=== PATIENT | female | born 1985 | race Caucasian/White ===

== ENCOUNTER → 2017-04-15 16:14 | Outpatient (CLI) | payer BC, SELFPAY ==
[2017-04-22 12:43] LABS: HPV Reflexed? NOT INDICATED
== END ==
PROVIDERS: Visit Provider Obstetrics & Gynecology
DX: Z12.4 Encounter for screening for malignant neoplasm of cervix (principal)
CPT/HCPCS: 88175; G0145

== ENCOUNTER 2017-10-13 08:28 | Emergency (ER) | payer BC, SELFPAY ==
[2017-10-13 08:29] VITALS: BP 128/96; PULSE 100; RESP 16; TEMP 36.4; O2SAT 100; BMI 18.5
--- NOTE | 2017-10-13 08:38 | ED.VISSUMM ---
- ER Visit Summary Date of Service: 10/13/17 Chief Complaint: Dizziness History of Present Illness: The patient is a 32 F who presents with dizziness. She states is been intermittent for the past couple of months. She has no symptoms currently. She describes it as room spinning when it happens. She states she has overall diffuse weakness as well when this happens. No recent illnesses. No history of vertigo. She has no health problems and takes no medications on a daily basis. Physical Examination: Vital signs reviewed. HEENT exam unremarkable. Heart is regular rate and rhythm without murmurs. Lungs are clear to auscultation. Abdomen is soft and nontender. Extremities reveal no edema. Skin exam normal. Neurologic exam normal. Test Results: Lab studies are normal Emergency Department Course and Treatment: Patient has no symptoms at this time. Her symptoms sound like vertigo with the intermittent nature in the room spinning. Her neurologic exam is normal. I will give her Antivert that she can take at home when symptoms return. I will give her a PCP to follow-up with Treatment Plan: [] Disposition: Discharge Impression: Vertigo This note was generated with [employer] dictation software. It may contain incorrect words, spelling, and punctuation that were not noted in review of the chart prior to signing ED Disposition - Plan for ED Patient: Chief Complaint: Dizziness Referrals: NOT,DEFINED [NON-STAFF] -
[2017-10-13 08:40] VITALS: BP 110/79; PULSE 72; RESP 16; TEMP 36.8; O2SAT 100
[2017-10-13 09:17] LABS: Absolute Lymphocyte Count 2.28 X10^3/ul (0.83-4.51); Absolute Neutrophil Count 3.5 X10^3/uL (2.0-7.7); Basophil# 0.04 X10^3/uL; Basophil% 0.6 % (0-1); Eosinophil# 0.17 X10^3/uL; Eosinophils% 2.6 % (0-5); Hematocrit 42.8 % (37-47); Hemoglobin 14.5 g/dl (12.0-15.0); Lymphocyte # 2.28 X10^3/ul (4.0); Lymphocyte % 34.3 % (19-41); Mean Corp Hgb Conc 33.9 g/gl (32-36); Mean Corpuscular Hgb 29.9 pg (27.0-32.0); Mean Corpuscular Volume 88.2 fL (81-99); Mean Platelet Vol. 10.7 fl (6.2-12.0); Monocyte# 0.61 X10^3/uL; Monocyte% 9.2 % (0-10); Neutrophil # 3.54 X10^3/uL (2.7-7.7); Neutrophil % 53.1 % (47-70); POSITIVE COUNT NO; POSITIVE DIFFERENTIAL NO; POSITIVE MORPHOLOGY NO; Platelet Count 198 K/mm3 (150-450); RBC Distribution Width CV 12.8 % (11.6-14.6); Red Blood Count 4.85 M/mm3 (4.2-5.4); White Blood Count 6.7 K/mm3 (4.4-11.0)
[2017-10-13 09:27] LABS: Anion Gap 10 (5-15); BUN 14 mg/dL (7-18); BUN/Creat Ratio 20.6 RATIO (10-20); Calcium,Total 9.1 mg/dL (8.5-10.1); Chloride 103 mmol/L (98-107); Creatinine, Serum 0.68 mg/dL (0.55-1.02); EST Glomerular Filtration Rate 108 mL/min (>60); Est Glom Filt Rate - Afr Amer 131 mL/min (>60); Estimated Creatinine Clearance 93.55 ml/min; Glucose 86 mg/dL (74-106); Potassium 3.8 mmol/L (3.5-5.1); Sodium Level 142 mmol/L (136-145)
[2017-10-13 09:40] LABS: Bacteria 0 SEEN /hpf (None Seen); Mucous, Urine 0 SEEN /hpf (<or=2+); Red Blood Cells-Urine 0 SEEN /hpf (0-5); Squamous Epithelial Cells - UA 0 SEEN /hpf (5-10); White Blood Cells 0 SEEN /hpf (0-5)
[2017-10-13 09:43] LABS: Color, Urine Yellow (Yellow); Glucose, Dipstick Normal (Normal); Ketone-Dipstick Negative (Negative); Leukocyte Esterase-Dipstick Negative /ul (Negative); Nitrite-Dipstick Negative (Negative); Occult Blood-Urine Negative /ul (Negative); Protein-Dipstick Negative (Negative); Specific Gravity, Urine 1.015 (1.002-1.030); Urine Bilirubin Dipstick Negative (Negative); Urine Clarity Clear (Clear); Urine Urobilinogen Normal (Normal)
[2017-10-13 09:44] LABS: Internal QC Validated? YES +Cl - CLEAR BKGD
[2017-10-13 09:45] LABS: Pregnancy, Urine Negative Negative
--- NOTE | 2017-10-13 09:57 | ED.DEP ---
ED Disposition - Plan for ED Patient: Disposition: Home or Assisted Living Chief Complaint: Dizziness Instructions: ED BPV Vertigo Prescriptions: Meclizine HCl [Antivert] 25 mg PO 4X/DAY PRN PRN #20 tab PRN Reason: Dizziness Referrals: NOT,DEFINED [NON-STAFF] - John Olivas III, MD [STAFF PHYSICIAN] -
== END 2017-10-13 10:13 | disposition home or self-care (01) ==
PROVIDERS: Emergency Provider Emergency Medicine
DX: R42 Dizziness and giddiness (principal)
CPT/HCPCS: 80048; 81001; 81025; 85025; 99283; A4216

== ENCOUNTER → 2018-05-25 13:03 | Outpatient (CLI) | payer BC, SELFPAY ==
[2018-05-25 15:38] LABS: Chlamydia Trachomatis by PCR Negative (Negative); Neisserai gonorrhoeae by PCR Negative (Negative); Probe Check PASS; Sample Adequacy Control PASS; Specimen Processing Control PASS
[2018-05-26 14:52] LABS: HPV Reflexed? NOT INDICATED
== END ==
PROVIDERS: Visit Provider Obstetrics & Gynecology
DX: Z12.4 Encounter for screening for malignant neoplasm of cervix (principal); Z11.3 Encounter for screening for infections with a predominantly sexual mode of transmission
CPT/HCPCS: 87491; 87591; 88175; G0145

== ENCOUNTER → 2018-06-18 12:01 | Outpatient (CLI) | payer BC, SELFPAY ==
[2018-06-18 14:05] LABS: Color, Urine Yellow (Yellow); Glucose, Dipstick Normal (Normal); Ketone-Dipstick Negative (Negative); Leukocyte Esterase-Dipstick 100 /ul (Negative); Nitrite-Dipstick Negative (Negative); Occult Blood-Urine Negative /ul (Negative); Protein-Dipstick Negative (Negative); Urine Bilirubin Dipstick Negative (Negative); Urine Clarity Sl. Cloudy (Clear); Urine Urobilinogen Normal (Normal)
[2018-06-18 14:07] LABS: Absolute Lymphocyte Count 1.25 X10^3/ul (0.83-4.51); Absolute Neutrophil Count 5.7 X10^3/uL (2.0-7.7); Basophil# 0.02 X10^3/uL; Basophil% 0.3 % (0-1); Eosinophil# 0.04 X10^3/uL; Eosinophils% 0.5 % (0-5); Hematocrit 39.4 % (37-47); Hemoglobin 13.4 g/dl (12.0-15.0); Lymphocyte # 1.25 X10^3/ul (4.0); Lymphocyte % 16.8 % (19-41); Mean Corpuscular Hgb 29.9 pg (27.0-32.0); Mean Corpuscular Volume 87.9 fL (81-99); Mean Platelet Vol. 11.2 fl (6.2-12.0); Monocyte# 0.46 X10^3/uL; Monocyte% 6.2 % (0-10); Neutrophil # 5.68 X10^3/uL (2.7-7.7); Neutrophil % 76.1 % (47-70); POSITIVE COUNT NO; POSITIVE DIFFERENTIAL NO; POSITIVE MORPHOLOGY NO; Platelet Count 223 K/mm3 (150-450); RBC Distribution Width CV 12.8 % (11.6-14.6); RBC Distribution Width SD 41.2 fl (35.1-43.9); Red Blood Count 4.48 M/mm3 (4.2-5.4); White Blood Count 7.5 K/mm3 (4.4-11.0)
[2018-06-18 14:20] LABS: Thyroid Stim Hormone (TSH) 0.98 uIU/mL (0.358-3.74)
[2018-06-18 15:00] LABS: HIV - WCH Non-Reactive (Nonreactive); Rubella IgG 311.4 IU/mL
[2018-06-19 04:56] LABS: Prenatal RPR NONREACTIVE (NONREACTIVE)
[2018-06-19 11:26] LABS: HEPATITIS B SURFACE AG Negative (Negative); Hep C Antibodies <0.1 s/co ratio (0.0-0.9)
== END ==
PROVIDERS: Visit Provider Obstetrics & Gynecology
DX: Z34.81 Encounter for supervision of other normal pregnancy, first trimester (principal)
CPT/HCPCS: 36415; 81002; 84443; 85025; 86703; 86762; 86803; 87340

== ENCOUNTER 2018-08-10 04:58 | Emergency (ER) | payer BC, SELFPAY ==
[2018-08-10 05:01] VITALS: BP 134/90; PULSE 92; RESP 18; TEMP 36.3; O2SAT 100; BMI 20.1
--- NOTE | 2018-08-10 05:11 | ED.RN ---
RN CALLED FOR EKG, NO OLD EKGS IN MUSE
--- NOTE | 2018-08-10 05:13 | EKG12_ITS ---
Test Reason : CP Blood Pressure : / mmHG Vent. Rate : 106 BPM Atrial Rate : 106 BPM P-R Int : 132 ms QRS Dur : 084 ms QT Int : 348 ms P-R-T Axes : 074 077 045 degrees QTc Int : 462 ms Sinus tachycardia Nonspecific ST abnormality Abnormal ECG Confirmed by RENÉE ELY, SAGE ([id number]), medical editor BURT MACDONALD ([id number]) on 08/11/2018 8:16:45 AM Referred By: LOPEZ Confirmed By:SAGE CHINCHILLA MD
[2018-08-10 05:23] VITALS: O2SAT 100
[2018-08-10] MEDS: 0.9% Normal Saline 1,000 ML 1000 ML IV (05:23)
--- NOTE | 2018-08-10 05:33 | ED.RN ---
DR. MAE MADE AWARE BY THIS NURSE OF VISIBLE SHAKING NOTED IN PATIENT'S EXTREMITIES, OFF AND ON. THIS NURSE BELIEVES THAT COULD POSSIBLY BY ANXIETY RELATED TO HER CONDITION AND THE WELL BEING OF HER UNBORN BABY. NO NEW ORDERS BY DR. MAE AT THIS TIME.
[2018-08-10 05:41] LABS: Absolute Lymphocyte Count 2.52 X10^3/ul (0.83-4.51); Absolute Neutrophil Count 5.5 X10^3/uL (2.0-7.7); Basophil# 0.02 X10^3/uL; Basophil% 0.2 % (0-1); Eosinophil# 0.15 X10^3/uL; Eosinophils% 1.7 % (0-5); Hematocrit 35.8 % (37-47); Hemoglobin 12.3 g/dl (12.0-15.0); Lymphocyte # 2.52 X10^3/ul (4.0); Lymphocyte % 28.6 % (19-41); Mean Corp Hgb Conc 34.4 g/gl (32-36); Mean Corpuscular Hgb 29.9 pg (27.0-32.0); Mean Corpuscular Volume 86.9 fL (81-99); Mean Platelet Vol. 10.8 fl (6.2-12.0); Monocyte# 0.61 X10^3/uL; Monocyte% 6.9 % (0-10); Neutrophil # 5.47 X10^3/uL (2.7-7.7); Neutrophil % 62.1 % (47-70); Platelet Count 169 K/mm3 (150-450); RBC Distribution Width SD 41.7 fl (35.1-43.9); Red Blood Count 4.12 M/mm3 (4.2-5.4); White Blood Count 8.8 K/mm3 (4.4-11.0)
[2018-08-10 05:42] VITALS: BP 95/63; PULSE 95; RESP 17; O2SAT 100
[2018-08-10 05:46] VITALS: BP 115/77
[2018-08-10 05:51] LABS: POSITIVE COUNT NO; POSITIVE DIFFERENTIAL NO; POSITIVE MORPHOLOGY NO
[2018-08-10 05:57] LABS: D-Dimer Quantitative (DVT/PE) 0.42 FEU/ug/m (0.27-0.49)
--- NOTE | 2018-08-10 06:04 | RAD_ITS ---
STUDY: X-RAY CHEST REASON FOR EXAM: Female, 32 years old. Shortness of breath TECHNIQUE: 1 view COMPARISON: None. FINDINGS: The lungs are clear and expanded. There is no demonstrated pleural abnormality. Normal size heart. Normal mediastinum and saad. Normal visualized pulmonary arteries. Normal visualized aortic arch and descending thoracic aorta. Normal visualized thoracic spine. Normal visualized ribs, clavicles, and shoulders. There is no demonstrated abnormality of the visualized soft tissue structures of the upper abdomen. RAD/Chest 1 View (Portable) IMPRESSION: Normal x-ray examination of the chest. No acute findings in the lungs Electronically Signed: Pramod Crabtree MD at 6:54 EDT Tel , Service support ,
[2018-08-10 06:05] LABS: Anion Gap 12 (5-15); BUN 8 mg/dL (7-18); BUN/Creat Ratio 15.4 RATIO (10-20); Chloride 105 mmol/L (98-107); Creatinine, Serum 0.52 mg/dL (0.55-1.02); EST Glomerular Filtration Rate 146 mL/min (>60); Est Glom Filt Rate - Afr Amer 177 mL/min (>60); Estimated Creatinine Clearance 149.84 ml/min; Glucose 90 mg/dL (74-106); Sodium Level 140 mmol/L (136-145); Thyroid Stim Hormone (TSH) 4.34 uIU/mL (0.358-3.74)
--- NOTE | 2018-08-10 06:07 | ED.DCSUM_ITS ---
- ER Visit Summary Date of Service: 08/10/18 Chief Complaint: Palpitation History of Present Illness: The patient is a [address] Ashlie Cortez. She is a G2, P1 at 17 weeks of . She reports approximately 4 hours she began having palpitations as though her heart was beating quickly. This seems to get better and worse at times. She denies any chest pain. She does report that she is short of breath. She has no personal family history of DVT. She did return from [place] 3 days ago. She denies any ankle swelling or calf pain. Review of systems is otherwise negative. No vaginal bleeding or discharge. No fever or chills. Physical Examination: Vitals: Stable. Afebrile. General: Well-nourished and well-developed. Head: Normocephalic atraumatic. Neck: Supple, no lymphadenopathy. No JVD. Nontender. Cardiovascular: Tachycardic regular rhythm. No murmurs. Respiratory: No respiratory distress. Clear to auscultation bilaterally. Abdominal: Soft, nontender, nondistended, normal bowel sounds. No guarding, rebound, or peritoneal signs. Gravid uterus. Back: Nontender. Extremities: Nontender, no edema. Skin: Normal color, no rash. Neurologic: Alert and oriented ?3. Cranial nerves II through XII are intact. Normal strength and sensation. Psych: Normal affect. Test Results: EKG is sinus tach at [address] changes. There is not an old EKG for comparison. D-dimer is negative. CBC shows a hematocrit of 35.8. Chem-7 shows a potassium of 3.0 and creatinine 0.52. Troponin is negative. TSH is 4.34. Chest x-ray shows no acute disease. Emergency Department Course and Treatment: Patient had an IV placed. She is given a liter of normal saline. Her heart rate did increase to the 150s transiently. However, her blood pressure remained stable. Treatment Plan: Patient was discussed with Dr. Maddox. She will be discharged instructions to follow-up within 3 to 5 days for another exam. She is instructed to push fluids and eat foods high in potassium. Return to the emergency department for any worsening symptoms. Disposition: To home in improved and stable condition. Impression: 1. Palpitations. 2. Sinus tachycardia. 3. Hypokalemia. 4. Second trimester . This note was generated with [employer] software. It may contain incorrect words, spelling, and punctuation that were not noted in review of the chart prior to signing ED Disposition - Plan for ED Patient: Instructions: ED Palpitations Referrals: Mary Watts MD [STAFF PHYSICIAN] - 3-5 Days
[2018-08-10 06:33] VITALS: BP 105/80; PULSE 86; RESP 18; O2SAT 100
[2018-08-10 07:06] VITALS: BP 105/72; PULSE 89; RESP 14; O2SAT 100
== END 2018-08-10 07:07 | disposition home or self-care (01) ==
LOC: ED 05:23
PROVIDERS: Emergency Provider Emergency Medicine; Family Provider Family Medicine; PCP Family Medicine
DX: R00.2 Palpitations (principal)
CPT/HCPCS: 71045; 80048; 84443; 84484; 85025; 85379; 93005; 96360; 96361; 99284; J7030; A4216

== ENCOUNTER → 2018-08-12 | Outpatient (CLI) | payer BC, SELFPAY ==
[2018-08-10 05:01] VITALS: BMI 20.1
[2018-08-12 14:02] LABS: Potassium 3.5 mmol/L (3.5-5.1); T4 Free Direct 1.17 ng/dL (0.76-1.46); Thyroid Stim Hormone (TSH) 3.07 uIU/mL (0.358-3.74)
[2018-08-14 03:06] LABS: AFP MoM Value 1.14 (.); Comment Report (.); DIA MoM Value 0.87 (.); DIA Value-EIA 181.75 pg/mL (.); DSR (By Age) 578 (.); DSR (Second Trimester) 7256 (.); Gestat. Age Based On As provided (.); Gestational Age 17.3 WEEKS (.); Insulin Dep Diabetes No (.); Maternal Age At EDD 31.4 yr (.); hCG MoM 1.43 (.)
== END | disposition home or self-care (01) ==
PROVIDERS: Visit Provider Obstetrics & Gynecology
DX: Z34.82 Encounter for supervision of other normal pregnancy, second trimester (principal); Z86.79 Personal history of other diseases of the circulatory system; Z87.898 Personal history of other specified conditions
CPT/HCPCS: 36415; 82105; 82677; 84132; 84439; 84443; 84702

== ENCOUNTER → 2018-10-26 | Outpatient (CLI) | payer BC, SELFPAY ==
[2018-10-26 13:11] LABS: Hematocrit 36.2 % (37-47); Mean Corp Hgb Conc 33.1 g/dL (32-36); Mean Corpuscular Volume 93.5 fL (81-99); Mean Platelet Vol. 11.8 fl (6.2-12.0); Platelet Count 168 K/mm3 (150-450); RBC Distribution Width CV 13.2 % (11.6-14.6); RBC Distribution Width SD 45.1 fl (35.1-43.9); Red Blood Count 3.87 M/mm3 (4.2-5.4); White Blood Count 12.2 K/mm3 (4.4-11.0)
[2018-10-26 13:17] LABS: Glucose Challenge Gest 1H 50g 67 mg/dL (70-140)
== END | disposition home or self-care (01) ==
LOC: WOBLAB 11:12
PROVIDERS: Visit Provider Obstetrics & Gynecology
DX: Z34.83 Encounter for supervision of other normal pregnancy, third trimester (principal)
CPT/HCPCS: 36415; 82950; 85027

== ENCOUNTER → 2018-11-18 | Outpatient (CLI) | payer BC, SELFPAY | END | disposition home or self-care (01) | LOC: PSN 09:14 | PROVIDERS: Referring Provider Obstetrics & Gynecology; Visit Provider Obstetrics & Gynecology | DX: O99.413 Diseases of the circulatory system complicating pregnancy, third trimester (principal); Z3A.31 31 weeks gestation of pregnancy | CPT/HCPCS: 93225; 93226 ==

== ENCOUNTER 2019-01-08 18:00 | Outpatient (CLI) | payer BC, SELFPAY ==
[2019-01-08 18:41] VITALS: BMI 22.1
--- NOTE | 2019-01-18 12:26 | OB.TRI.NOTE ---
History of Present Illness Date of Service: 01/08/19 Was patient seen by the physician?: Yes Reason For Visit: R/O REPEAT C SECTION Date of Service: 01/08/19 Final DAISY: 01/18/19 Gestational age: 38 4/7 wk History of Present Illness: 33 yo female at 38 4/7 wk planned repeat C/S presents with CC of UCs. Mild and not too painful, but here for labor check. Observed and irreg UCs noted, with no change of cervix. Allergies No Known Allergies Allergy (Verified 01/09/19 00:34) NST - FHR Rate Baby A Variability:: Moderate Accelerations:: 15 x 15 Decelerations:: None NST Reactive:: Yes, Appropriate for gestational age FHR Category:: Category I Uterine Activity:: UCs noted No change of cervix. Impression/Plan 38 4/7 wk planned repeat C/S False labor. No change of cervix. NST reactive. Home. Return if inc s/sx of labor: if SROM, Painful UCs, dec movement. UCs. If undelivered by 01/11/19 keep appt then for scheduled repeat C/S
== END 2019-01-08 20:30 | disposition home or self-care (01) ==
LOC: WPOUT 18:05 → WP 18:06
PROVIDERS: Family Provider Family Medicine; PCP Family Medicine; Visit Provider Obstetrics & Gynecology
DX: O47.1 False labor at or after 37 completed weeks of gestation (principal); Z3A.38 38 weeks gestation of pregnancy
CPT/HCPCS: 59025; 59050; 99218; G0378

== ENCOUNTER 2019-01-09 00:20 | Inpatient (IN) | payer BC, SELFPAY ==
[2019-01-08 18:41] VITALS: BMI 22.1
--- NOTE | 2019-01-08 20:28 | HP.PCM_ITS ---
History and Physical Date of Admission: 01/11/19 OB HISTORY AND PHYSICAL EXAMINATION History of this : 33 yo female Ab0 with EDC 01/18/2019 by Ultrasound, presents to Labor and Delivery at 38 5/7 wk EGA with CC of gush of fluid and having contractions. She is scheduled for repeat planned repeat C/S delivery at 39 wk EGA on 01/11/19. ROM test positive, gross ROM noted. care remarkable for A positive. Rubella Immune GBS not done. 1.) Some language barrier - from [place], Somali speaking 2.) Brother with Microcephaly and Spina Bifida 3.) CF testing declined, 4.) Bicornuate uterus by history, Prior C/S Plans repeat C/S declined Pertinent Past Medical History: none. Allergies: No Known Drug Allergies Medications: During - No Meds Review of Systems: Non-contributory PAST HISTORY: Breast/Ovarian/Colon Cancers - Denies Infections - Chicken pox and Mumps Illnesses - none Accidents - no injuries of consequence History of Abnormal PAPS - Denies Hospitalizations - Childbirth SURGICAL HISTORY: 1. P C/S for bicornate uterus MENSTRUAL HISTORY: LMP Known?- Yes Amount/Duration - 7 days, Regularity - Regular, LMP - 04/13/18, Age Onset Menarche - 17 PAST PREGNANCIES: Total Pregnancies - 2; Full Term Pregnancies - 1; Premature - 0; Abortions, Induced - 0; Abortions, Spontaneous - 0; Ectopics - 0; Multiple Births - 0; Living Children - 1 SOCIAL HISTORY: Alcohol Use - denies drinking Smoking - denies smoking Diet - moderate, balanced diet Lifestyle - Exercise - minimal Employer - [employer] Illicit Drug Use - denies use of street drugs Sexual Activity - Hours Worked - 20 Spouse-Sig Other Name - Dar Spouse-Sig Other Occupation - [employer] Children Name(s) - [place] Control - none PHYSICAL EXAMINATION General Appearance: 33 yo female in no acute distress Vital Signs: AF, VSS Heart: RRR without rubs or gallops Lungs: CTA x 2 Breasts: deferred Abdomen: gravid Cervix: deferred Presentation: cephalic Size: AGA Movement: present Heart: UCs noted q 4-7 mins. FHR reassuring. 140s-150s Impression /Plan: Intrauterine . 38 5/7 wk EGA , hx of prior C/S scheduled for planned repeat C section in two days, now with ROM. Hx of Bicornuate uterus. Proceed with repeat C/S delivery. Declined Bilateral tubal occlusion. Patient seen and examined at time of H and P Balbir Watts MD 01/09/19 1428
[2019-01-09] VITALS (26 sets, daily range): BP systolic 101–134; BP diastolic 66–82; PULSE 69–96; RESP 12–18; TEMP 36.1–37.3; O2SAT 14–99; BMI 22.3
[2019-01-09] MEDS: Lactated Ringers 1,000 ML 999 ML IV (00:30)
[2019-01-09 00:56] LABS: Absolute Lymphocyte Count 1.65 X10^3/uL (0.83-4.51); Basophil# 0.06 X10^3/uL; Basophil% 0.5 % (0-1); Eosinophil# 0.18 X10^3/uL; Eosinophils% 1.4 % (0-5); Hematocrit 36.2 % (37-47); Hemoglobin 12.2 g/dL (12.0-15.0); Lymphocyte # 1.65 X10^3/ul (4.0); Lymphocyte % 12.8 % (19-41); Mean Corp Hgb Conc 33.7 g/dL (32-36); Mean Corpuscular Hgb 30.4 pg (27.0-32.0); Mean Corpuscular Volume 90.3 fL (81-99); Mean Platelet Vol. 12.4 fl (6.2-12.0); Monocyte# 0.89 X10^3/uL; Monocyte% 6.9 % (0-10); NRBC Flagged by Analyzer 0 % (0-5); Neutrophil # 10.01 X10^3/uL (2.7-7.7); Neutrophil % 77.3 % (47-70); Platelet Count 163 K/mm3 (150-450); RBC Distribution Width CV 12.9 % (11.6-14.6); RBC Distribution Width SD 42.5 fl (35.1-43.9); Red Blood Count 4.01 M/mm3 (4.2-5.4); White Blood Count 12.9 K/mm3 (4.4-11.0)
--- NOTE | 2019-01-09 01:10 | DCINST_ITS ---
Discharge Diet: No Restrictions Discharge Activity: May Shower, May Take a Tub Bath Return to work on:: 02/22/19 May resume sexual activity in: 4-6 weeks Lifting Restrictions: 20 pounds Additional Activity Instructions:: Nothing in the vagina for 4-6 weeks. You may return to work/school in 6 weeks. Change Dressing in (Days):: 14 Remove Dressing in (days):: 14 Cleanse incision/area with: Soap & Water, Keep Dressing Clean & Dry Additional Instructions: If you experience any of the following, contact your healthcare provider. * Bleeding that soaks a pad every hour for 2 hours * Fever 100.4 or higher * Unrelieved incision or abdominal pain * Swelling, redness, discharge or bleeding from your incision * Problems urinating (including inability to urinate or burning while urinating). * Visual changes * Severe headache * Flu-like symptoms * Pain or redness in one of both of your breasts * Pain, warmth, tenderness or swelling in your legs, especially the calf area * Frequent nausea and vomiting * Symptoms of depression or anxiety If you experience any of the following, call 911 or go to the nearest Emergency Room. * Chest pain * Problems breathing * Seizure activity * Partial or complete paralysis of a body part, slurred speech, weakness or drooping of the face, or a sudden inability to walk or hold your balance Allergies/Adverse Reactions: Allergies No Known Allergies Allergy (Verified 01/09/19 00:34) Medications to take at Discharge Vits [Prenatabs FA ] 1 tab PO DAILY 08/10/18 Docusate Sodium [Colace] 100 mg PO BID #30 cap 01/09/19 Naproxen [Naprosyn] 250 - 500 mg PO TID PRN PRN #30 tab 01/09/19 Oxycodone [Oxyir] 5 mg PO Q6H PRN PRN 4 Days #15 tablet 01/09/19 Polyethylene Glycol 3350 [Miralax] 17 gm PO DAILY PRN #14 packet 01/09/19 The following prescriptions were given: Docusate Sodium [Colace] 100 mg PO BID #30 cap Transmission Status: Pending to [id number] Polyethylene Glycol 3350 [Miralax] 17 gm PO DAILY PRN #14 packet PRN Reason: Constipation Transmission Status: Pending to [id number] Naproxen [Naprosyn] 250 - 500 mg PO TID PRN PRN #30 tab PRN Reason: Mild-Mod Pain (1-07/17) Transmission Status: Pending to [id number] Oxycodone [Oxyir] 5 mg PO Q6H PRN PRN 4 Days #15 tablet PRN Reason: Mod-Severe Pain (-12/17) Transmission Status: Received by [id number] Follow-Up: Call to make an appointment with your doctor for an incision check in 1-2 weeks. You will also need a 6 week post- follow up appointment. Test results from this visit will be discussed in further detail at your follow- up appointment, if applicable. Please Follow Up With: Mary Watts MD - [phone] When: appointment for postoperative incision check in 2 wks as planned. Primary Care Physician: Gabriel Bradford MD [Primary Care Provider] - Proposed Discharge Date: 01/11/19
[2019-01-09] MEDS: Sodium Citrate/Citric Acid 30 ML UDC PO (01:25)
[2019-01-09] MEDS: Cefazolin 2 GM in 0.9% Normal Saline 100 ML IV (01:30)
--- NOTE | 2019-01-09 02:11 | PCM.OPRPT ---
Delivery Classification: STACIA Final DAISY: 01/18/19 Gestational age: 38 Weeks and 5 Days supervisor front: Drea Zaldivar Type of Anesthesia:: Spinal/Supplemental - Marcia Frederick CRNA Date of Procedure: 01/09/19 Pre-Operative Diagnosis: 38 5/7 wk SROM prior C/S planned repeat Bicornuate uterus Post-Operative Diagnosis: 38 5/7 wk SROM Normal appearing uterus, no evidence of septum, not bicornuate Indications: SROM at 38 5/7 wk EGA Indications for : Repeat Elective Description of Procedure: Findings: At amniotomy, clear fluid was noted. Steve viable female in vertex presentation. Apgars8/9, Baby weight: 6# 3 oz There were normal appearing uterus, fallopian tubes and ovaries bilaterally. There were minimal filmy adhesions between the bladder and lower uterine segment Narrative account: After the risks, benefits and alternatives of the procedure were reviewed with the patient, informed consent was obtained. The patient was taken to the Operating room with an IV running, and placed in a seated position on the operating table for placement of the spinal. Once the spinal had been administered, she was briefly frog-legged for Riddle catheter placement, and then repositioned to dorsal supine position with leftward displacement of the uterus, and prepped and draped in the usual sterile fashion. Once the spinal was deemed adequate, a Pfannenstiel skin incision was created using the knife (through the prior skin incision scar). The incision was carried down to the rectus fascia using the knife. The fascia was nicked in the midline. The fascial incision was extended bilaterally using curved Daniels scissors. The superior aspect of the fascial incision was grasped with Zia clamps and tented up and the underlying rectus abdominal muscles were dissected free. In a similar manner, the inferior aspect of the facial incision was grasped with Zia clamps tented up and the underlying rectus abdominal muscles were dissected free. The rectus abdominis muscles were in the midline and the peritoneum was identified and entered by blunt and sharp dissection high in the incision. The peritoneum was stretched laterally and a bladder blade was inserted. The uterine incision was then created using Metzenbaum scissors. The operators fingertips were used to extend the uterine incision by blunt dissection in a caudad- cephalad orientation . Clear fluid was noted at amniotomy. The vertex was then delivered atraumatically through the incision. The OP and nares were bulb suctioned on the abdomen. The shoulders delivered easily . The cord clamped x two and cut. And the was handed off to the nurse awaiting delivery after briefly showing her to her parents. The baby had a spontaneous, vigorous cry. The placenta was then delivered. The uterus was exteriorized and cleared of clots and debris . The uterine incision was repaired with 1 Vicryl in a running locked fashion. A second imbricating layer was then placed, using 1 Monocryl in running nonlocked fashion. Bovie cautery was used to treat any bleeding areas . Excellent hemostasis was noted. At this point the uterus was returned to the abdominal cavity. The gutters were cleared of clots and debris and the incision at the uterus was inspected. Excellent hemostasis was noted. The peritoneal edges and rectus abdominis muscles were reapproximated in the midline with a series of vertical mattress stitches of 1 Vicryl. Excellent hemostasis was noted at the subfascial space The fascia was closed in a running nonlocked fashion with a Stratofix. The Subcutaneous fatty tissue was Bovie cauterized as needed for hemostasis. This layer was closed with a continuous suture of 3-0 Vicryl. The skin edges were closed in a Subcuticular stitch of 4-0 Monocryl. The incision was cleansed. Cavilon, Steristrips, and Mepilex dressing were applied to the skin . The patient was then transferred to the recovery room bed in stable condition after tolerating the procedure well. Sponge, lap, needle and instrument counts correct times two. Medications given preop and intraoperatively included: Ancef 2 gm given IV cosmetic sales consultant to the operating room. Azithromycin 500 mg IV was also given due to SROM. The patient received Pitocin given IV after cord clamp, and Toradol 30 mg IV times one. For a complete listing of medications given preop and intraoperatively, please see the anesthesia record. Amniotic Membrane Rupture Type: Spontaneous Amniotic Fluid Description: Clear Placenta Disposition: [facility] Drain: Riddle to straight drain Fluids Replaced: LR Cord Entanglement: None Cord Vessel Description: 3 Vessels Esitmated Blood Loss (ml): 800 Gender: Female - 6# 3 oz. (1 minute): 8 (5 minute): 9 Antibiotic Given: Ancef 2 grams IV x1, Zithromax 500 mg/5 mL X1 Pt instructed on risks of surgery: Bleeding, Anesthesia Risks, Infection - Admit VTE Documentation VTE Present on Admission: No VTE Mechan Device Prophylaxis: SCD's VTE Pharm Prophylaxis ordered?: No
[2019-01-09] MEDS: Oxytocin 30 units/NS 500 ml 30 UNITS/500 ML IV.SOLN 167 UNITS IV (02:45)
[2019-01-09] MEDS: Lactated Ringers 1,000 ML 100 ML IV (05:55)
[2019-01-09] MEDS: Ketorolac 30 MG/ML Syringe IV ×3 (08:02→20:07)
--- NOTE | 2019-01-09 09:38 | PN.OBGYN_ITS ---
Subjective: POD#0 Day of delivery Doing well. Some burning sensation at the incision. Breast feeding well. - Physical Exam Vitals/I&O's: Vital Signs Temp Pulse Resp BP Pulse Ox 99.2 F H 85 16 101/74 99 01/09/19 08:45 01/09/19 08:45 01/09/19 08:45 01/09/19 08:45 01/09/19 08:45 Oxygen Delivery Method Room Air Weight: 59 kg Body Mass Index (BMI) 22.3 Intake and Output for Last 24 Hours 01/07/19 01/08/19 01/09/19 23:59 23:59 23:59 Intake Total 2947.4 / 2947.4 Output Total 450 / 450 Balance 2497.4 / 2497.4 General: Alert, Oriented x3, Cooperative, No apparent distress HEENT: Atraumatic, EOMI Neck: Supple Abdomen: Soft - Fundus firm minimally tender, fundus inferior to umbilicus Skin: Incision - CDI. Mepilex Psych/Mental Status: Normal Affect Laboratory Results 01/09/19 00:45: WBC 12.9 H, RBC 4.01 L, Hgb 12.2, Hct 36.2 L, MCV 90.3, MCH 30.4, MCHC 33.7, RDW Std Deviation 42.5, RDW Coeff of Zelda 12.9, Plt Count 163, MPV 12.4 H, Immature Gran % (Auto) 1.100 H, Neut % (Auto) 77.3 H, Lymph % (Auto) 12.8 L, Caswell % (Auto) 6.9, Eos % (Auto) 1.4, Baso % (Auto) 0.5, Absolute Neuts (auto) 10.0 H, Absolute Lymphs (auto) 1.65, Nucleated RBC % 0 01/09/19 00:45: Blood Type A POSITIVE, Antibody Screen NEGATIVE Current Medications Acetaminophen (Tylenol) 1,000 mg PO Q8H PRN PRN PRN Reason: Pain Score 1-3/10 Bisacodyl (Dulcolax) 10 mg RECTAL UD PRN PRN Reason: If no BM Diphenhydramine HCl (Benadryl) 25 mg PO Q6H PRN PRN PRN Reason: ITCHING Stop: 01/10/19 02:50 Hydrocortisone (Hytone) 1 applic TOPICAL TID PRN PRN; Protocol PRN Reason: Discomfort Lactated Ringer's () 1,000 mls @ 100 mls/hr IV .Q10H [facility] Last Admin: 01/09/19 05:55 Dose: 100 mls/hr Documented by: Naloxone HCl 4 mg/ Dextrose 504 mls @ 0 mls/hr IV .Q0M PRN; Protocol PRN Reason: Respiratory depression Ketorolac Tromethamine (Toradol) 30 mg IV Q6H [facility] Stop: 01/11/19 02:01 Last Admin: 01/09/19 08:02 Dose: 30 mg Documented by: Methylergonovine Maleate (Methergine) 0.2 mg IM X1 PRN PRN Reason: Uterine Atony Nalbuphine HCl (Nubain) 5 mg IV Q3H PRN PRN PRN Reason: ITCHING Stop: 01/10/19 02:50 Naloxone HCl (Narcan) 0.02 mg IV Q1M PRN PRN Reason: RR <10 and pt unresponsive Naproxen (Naprosyn) 250 - 500 mg PO Q8H PRN PRN PRN Reason: Pain Score 1-3/10 Ondansetron HCl (Zofran Odt) 4 mg PO Q4H PRN PRN PRN Reason: ITCHING Stop: 01/10/19 02:50 Ondansetron HCl (Zofran) 4 mg IV Q4H PRN PRN PRN Reason: Nausea Oxycodone HCl (Oxyir) 5 - 10 mg PO Q4H PRN PRN PRN Reason: Pain Score 4-10/10 Multivit/Folic Acid/Iron (Prenatabs Fa) 1 tablet PO DAILY [facility] Prochlorperazine Edisylate (Compazine Iv) 10 mg IV Q6H PRN PRN PRN Reason: NAUSEA Senna/Docusate Sodium (Senokot-S, Merry-Colace) 1 - 2 tablet PO DAILY PRN PRN Reason: Constipation Simethicone (Mylicon) 80 mg PO PCHS PRN PRN Reason: Indigestion/stomach pain Sodium Chloride () 5 - 15 ml IV UD PRN PRN Reason: SALINE FLUSH Zolpidem Tartrate (Ambien (Generic)) 5 mg PO QHS PRN PRN PRN Reason: Insomnia Medical Necessity - Tobacco Use Smoking Status: Never smoker Assessment/Plan POD#0 Repeat C/S in labor, SROM Stable postop. Continue routine care. IV marii. Riddle in place. Advance diet and activity as tolerated.
[2019-01-09] MEDS: Prenatal Vits Tablet 1 TABLET PO (09:57)
[2019-01-09] MEDS: Acetaminophen 500 MG Tablet 1000 MG PO (09:58)
[2019-01-09] MEDS: 0.9% Saline Lock 10 ML Syringe IV (20:07)
[2019-01-10] VITALS: BP 114/62; PULSE 84; RESP 15; RESP 17; TEMP 37.2; O2SAT 98
[2019-01-10 01:00] VITALS: PULSE 84; RESP 17; O2SAT 97
[2019-01-10] MEDS: Ketorolac 30 MG/ML Syringe IV ×4 (01:53→20:50)
[2019-01-10] MEDS: 0.9% Saline Lock 10 ML Syringe IV ×4 (01:53→20:50)
[2019-01-10 03:24] VITALS: BP 120/77; PULSE 77; RESP 16
[2019-01-10 06:32] LABS: Hematocrit 29.4 % (37-47); Hemoglobin 9.7 g/dL (12.0-15.0); Mean Corpuscular Hgb 30.3 pg (27.0-32.0); Mean Corpuscular Volume 91.9 fL (81-99); Mean Platelet Vol. 12.3 fl (6.2-12.0); Platelet Count 126 K/mm3 (150-450); RBC Distribution Width CV 13.2 % (11.6-14.6); RBC Distribution Width SD 43.7 fl (35.1-43.9); White Blood Count 12.7 K/mm3 (4.4-11.0)
--- NOTE | 2019-01-10 07:43 | PCM.PN.OB ---
Subjective: POD#1 Repeat C/S SROM labor at 38 5/7 wk EGA Doing well. Nursing. Riddle out and IV to saline lock. sore. Would like to go home tomorrow AM if all OK by then. Objective: Significant guarding, even with adjusting blankets - Physical Exam Vitals/I&O's: Vital Signs Temp Pulse Resp BP Pulse Ox 98.9 F 77 16 120/77 97 01/10/19 00:00 01/10/19 03:24 01/10/19 03:24 01/10/19 03:24 01/10/19 01:00 EST Oxygen Delivery Method Room Air Weight: 59 kg Body Mass Index (BMI) 22.3 Intake and Output for Last 24 Hours 01/08/19 01/09/19 01/10/19 23:59 23:59 22:59 Intake Total 3805.74 / 3805.74 Output Total 2250 / 3450 1200 / 1200 Balance 1555.74 / 355.74 -1200 / -1200 General: Alert, Oriented x3, Cooperative, No apparent distress HEENT: Atraumatic, EOMI Neck: Supple Abdomen: Soft - Fundus firm and tender c/w postop status , at umbilicus Skin: Incision - Mepilex CDI. Neurological: Cranial nerves II-XII grossly intact Psych/Mental Status: Normal Affect Laboratory Results 01/10/19 05:37: WBC 12.7 H, RBC 3.20 L, Hgb 9.7 L, Hct 29.4 L, MCV 91.9, MCH 30.3, MCHC 33.0, RDW Std Deviation 43.7, RDW Coeff of Zelda 13.2, Plt Count 126 L, MPV 12.3 H Current Medications Acetaminophen (Tylenol) 1,000 mg PO Q8H PRN PRN PRN Reason: Pain Score 1-3/10 Last Admin: 01/09/19 09:58 Dose: 1,000 mg Documented by: Bisacodyl (Dulcolax) 10 mg RECTAL UD PRN PRN Reason: If no BM Hydrocortisone (Hytone) 1 applic TOPICAL TID PRN PRN; Protocol PRN Reason: Discomfort Naloxone HCl 4 mg/ Dextrose 504 mls @ 0 mls/hr IV .Q0M PRN; Protocol PRN Reason: Respiratory depression Ketorolac Tromethamine (Toradol) 30 mg IV Q6H [facility] Stop: 01/11/19 02:01 Last Admin: 01/10/19 01:53 EST Dose: 30 mg Documented by: Methylergonovine Maleate (Methergine) 0.2 mg IM X1 PRN PRN Reason: Uterine Atony Naloxone HCl (Narcan) 0.02 mg IV Q1M PRN PRN Reason: RR <10 and pt unresponsive Naproxen (Naprosyn) 250 - 500 mg PO Q8H PRN PRN PRN Reason: Pain Score 1-3/10 Ondansetron HCl (Zofran) 4 mg IV Q4H PRN PRN PRN Reason: Nausea Oxycodone HCl (Oxyir) 5 - 10 mg PO Q4H PRN PRN PRN Reason: Pain Score 4-10/10 Multivit/Folic Acid/Iron (Prenatabs Fa) 1 tablet PO DAILY [facility] Last Admin: 01/09/19 09:57 Dose: 1 tablet Documented by: Prochlorperazine Edisylate (Compazine Iv) 10 mg IV Q6H PRN PRN PRN Reason: NAUSEA Senna/Docusate Sodium (Senokot-S, Merry-Colace) 1 - 2 tablet PO DAILY PRN PRN Reason: Constipation Simethicone (Mylicon) 80 mg PO PCHS PRN PRN Reason: Indigestion/stomach pain Sodium Chloride () 5 - 15 ml IV UD PRN PRN Reason: SALINE FLUSH Last Admin: 01/10/19 01:53 EST Dose: 10 ml Documented by: Zolpidem Tartrate (Ambien (Generic)) 5 mg PO QHS PRN PRN PRN Reason: Insomnia Medical Necessity - Tobacco Use Smoking Status: Never smoker Assessment/Plan POD#1 Repeat C/S in labor, SROM Stable postop. Continue routine care. IV S/L for continued Toradol.
[2019-01-10 08:00] VITALS: BP 127/68; PULSE 70; RESP 15; TEMP 36.6
[2019-01-10] MEDS: Prenatal Vits Tablet 1 TABLET PO (08:25)
[2019-01-10] MEDS: Senna/Docusate Sodium 1 Tablet PO (08:26)
[2019-01-10 14:00] VITALS: BP 116/72; PULSE 92; RESP 15; TEMP 37.2
[2019-01-10 20:59] VITALS: BP 103/67; PULSE 87; RESP 18; TEMP 36.7; O2SAT 100
[2019-01-11] MEDS: Ketorolac 30 MG/ML Syringe IV (02:43)
[2019-01-11] MEDS: 0.9% Saline Lock 10 ML Syringe IV (02:44)
[2019-01-11 02:45] VITALS: BP 107/64; PULSE 74; RESP 18; TEMP 36.6; O2SAT 97
--- NOTE | 2019-01-11 08:33 | PCM.PN.OB ---
Subjective: POD#2 Repeat C/S SROM 38+ wk EGA Doing well. Would like to go home today. Baby to have repeat hearing screen prior to dischg. Questions about incision care and activities at home. - Physical Exam Vitals/I&O's: Vital Signs Temp Pulse Resp BP Pulse Ox 97.8 F 74 18 107/64 97 01/11/19 02:45 01/11/19 02:45 01/11/19 02:45 01/11/19 02:45 01/11/19 02:45 Oxygen Delivery Method Room Air Weight: 59 kg Body Mass Index (BMI) 22.3 Intake and Output for Last 24 Hours 01/10/19 01/10/19 01/11/19 00:59 23:59 23:59 Intake Total Output Total Balance General: Alert, Oriented x3, Cooperative, No apparent distress HEENT: Atraumatic, EOMI Neck: Supple Abdomen: Soft - Fundus firm NT at 2 cm inferior to umbilicus Skin: Incision - Mepilex CDI. Psych/Mental Status: Normal Affect Current Medications Acetaminophen (Tylenol) 1,000 mg PO Q8H PRN PRN PRN Reason: Pain Score 1-3/10 Last Admin: 01/09/19 09:58 Dose: 1,000 mg Documented by: Bisacodyl (Dulcolax) 10 mg RECTAL UD PRN PRN Reason: If no BM Hydrocortisone (Hytone) 1 applic TOPICAL TID PRN PRN; Protocol PRN Reason: Discomfort Naloxone HCl 4 mg/ Dextrose 504 mls @ 0 mls/hr IV .Q0M PRN; Protocol PRN Reason: Respiratory depression Methylergonovine Maleate (Methergine) 0.2 mg IM X1 PRN PRN Reason: Uterine Atony Naloxone HCl (Narcan) 0.02 mg IV Q1M PRN PRN Reason: RR <10 and pt unresponsive Naproxen (Naprosyn) 250 - 500 mg PO Q8H PRN PRN PRN Reason: Pain Score 1-3/10 Ondansetron HCl (Zofran) 4 mg IV Q4H PRN PRN PRN Reason: Nausea Oxycodone HCl (Oxyir) 5 - 10 mg PO Q4H PRN PRN PRN Reason: Pain Score 4-10/10 Multivit/Folic Acid/Iron (Prenatabs Fa) 1 tablet PO DAILY [facility] Last Admin: 01/10/19 08:25 Dose: 1 tablet Documented by: Prochlorperazine Edisylate (Compazine Iv) 10 mg IV Q6H PRN PRN PRN Reason: NAUSEA Senna/Docusate Sodium (Senokot-S, Merry-Colace) 1 - 2 tablet PO DAILY PRN PRN Reason: Constipation Last Admin: 01/10/19 08:26 Dose: 2 tablet Documented by: Simethicone (Mylicon) 80 mg PO PCHS PRN PRN Reason: Indigestion/stomach pain Sodium Chloride () 5 - 15 ml IV UD PRN PRN Reason: SALINE FLUSH Last Admin: 01/11/19 02:44 Dose: 10 ml Documented by: Zolpidem Tartrate (Ambien (Generic)) 5 mg PO QHS PRN PRN PRN Reason: Insomnia Medical Necessity - Tobacco Use Smoking Status: Never smoker Assessment/Plan POD#2 Repeat C/S in labor, SROM Stable postop. Continue routine care. Plans to go home today. Dischg instructions reviewed,
[2019-01-11 09:11] VITALS: BP 101/68; PULSE 82; RESP 18; TEMP 36.6
[2019-01-11] MEDS: Prenatal Vits Tablet 1 TABLET PO (09:24)
[2019-01-11] MEDS: Naproxen 250 MG Tablet PO (09:24)
[2019-01-11] MEDS: oxyCODONE 5 MG Tablet PO (11:14)
--- NOTE | 2019-01-12 07:56 | PCM.DC.SUM ---
Discharge Date and Diagnosis Date of Admission: 01/09/19 - 38 5/7 wk prior C/S SROM Date of Discharge: 01/11/19 - S/P repeat C/S Hospital Course and Treatment Operations: - - Repeat C section Summary of Care Provided: The patient is a 33 year old female with hx of prior C section Presents in labor with SROM. Admitted for repeat C/S Had discussed and declined prior. Procedure performed 01/09/19. Uncomplicated. Findings at time of procedure included normal appearing uterus. Steve viable female vtx presentation. 6# 3 oz. Apgars 8/9. Adhesions noted at lower uterine segment between anterior abdominal wall and adhesions between lower uterine segment and bladder. Postoperative recovery uneventful. Nursing baby well. Preoperative Hgb 12.2 g/dl Postoperative Hgb 9.3 g/dl. Pt afeb and VSS. Benign exam. Requested dischg to home POD#2 - Physical Exam Vitals/I&O's: Vital Signs Temp Pulse Resp BP Pulse Ox 98 F 82 18 101/68 97 01/11/19 09:11 01/11/19 09:11 01/11/19 09:11 01/11/19 09:11 01/11/19 02:45 Oxygen Delivery Method Room Air Weight: 59 kg Body Mass Index (BMI) 22.3 Intake and Output for Last 24 Hours 01/10/19 01/11/19 01/12/19 23:59 23:59 23:59 Output Total Balance Discharge Diet: No Restrictions Discharge Activity: May Shower, May Take a Tub Bath Return to work on:: 02/22/19 May resume sexual activity in: 4-6 weeks Additional Activity Instructions:: Nothing in the vagina for 4-6 weeks. You may return to work/school in 6 weeks. Change Dressing in (Days):: 14 Remove Dressing in (days):: 14 Cleanse incision/area with: Soap & Water, Keep Dressing Clean & Dry Home Medications: Medications to take at Discharge Vits [Prenatabs FA ] 1 tab PO DAILY 08/10/18 Docusate Sodium [Colace] 100 mg PO BID #30 cap 01/09/19 Naproxen [Naprosyn] 250 - 500 mg PO TID PRN PRN #30 tab 01/09/19 Oxycodone [Oxyir] 5 mg PO Q6H PRN PRN 4 Days #15 tab 01/09/19 Polyethylene Glycol 3350 [Miralax] 17 gm PO DAILY PRN #14 packet 01/09/19 Following Prescrptions Were Given to Patient: Docusate Sodium [Colace] 100 mg PO BID #30 cap Transmission Status: Received by [id number] Polyethylene Glycol 3350 [Miralax] 17 gm PO DAILY PRN #14 packet PRN Reason: Constipation Transmission Status: Received by [id number] Naproxen [Naprosyn] 250 - 500 mg PO TID PRN PRN #30 tab PRN Reason: Mild-Mod Pain (1-07/17) Transmission Status: Received by [id number] Oxycodone [Oxyir] 5 mg PO Q6H PRN PRN 4 Days #15 tab PRN Reason: Mod-Severe Pain (-12/17) Transmission Status: Received by [id number] Primary Care Physician: Gabriel Bradford MD [Primary Care Provider] - Please follow up with your Primary Care Physician in: 1-2 weeks Please Follow Up With: Mary Watts MD When: appointment for postoperative incision check in 2 wks as planned. Please Follow Up With: Mary Watts MD When: 4-6 weeks for post follow up appointment Medical Necessity - Tobacco Use Smoking Status: Never smoker Meaningful Use Info Meaningful Use Diagnoses (Choose all that apply): None applicable
== END 2019-01-11 11:50 | disposition home or self-care (01) | DRG 788 ==
PROVIDERS: Admitting Provider Obstetrics & Gynecology; Family Provider Family Medicine; PCP Family Medicine; Referring Provider Obstetrics & Gynecology; Visit Provider Obstetrics & Gynecology
DX: O34.211 Maternal care for low transverse scar from previous cesarean delivery (principal); Z3A.38 38 weeks gestation of pregnancy; Z37.0 Single live birth
CPT/HCPCS: 59025; 59050; 85025; 85027; 86850; 86900; 86901; 99218; J7120; A4216; G0378